=== PATIENT | female | born 1955 | race African-American/Black ===

== ENCOUNTER 2016-08-23 20:53 | Emergency (ER) | payer OTHER ==
[~2016-08-23] VITALS: Ht 165.1 cm; Wt 65.3 kg
--- NOTE | 2016-08-23 20:55 | NUR ---
TO BED 1 BIB PARAMEDICS C/O SUDDEN ONSET LUQ ABDOMINAL PAIN X20 MIN WORKFORCE MANAGEMENT COORDINATOR. PT AAOX4 NO ACUTE DISTRESS NOTED, RESP EVEN AND UNLABORED. PT TOOK FIORICET 1 1/2 TAB WORKFORCE MANAGEMENT COORDINATOR. PLACE PT ON CARDIAC MONITORING, CONTINUOUS POX, O2@2L/NC. PENDING ER MD REYNOSO.
[2016-08-23 21:55] LABS: BASOPHILS % (AUTO) 0.8 % (0.0-2.0); EOSINOPHILS # (AUTO) 0.2 /CMM (0.0-0.7); EOSINOPHILS % (AUTO) 2.6 % (0.0-6.0); HEMATOCRIT 32 % (33-45); HEMOGLOBIN 10.5 g/dL (11.5-14.8); LYMPHOCYTES # (AUTO) 2.6 /CMM (0.8-4.8); LYMPHOCYTES % (AUTO) 45.8 % (20.0-44.0); MEAN CORPUSCULAR HEMOGLOBIN 27 PG (26.0-33.0); MEAN CORPUSCULAR HGB CONC 33 g/dl (31.0-36.0); MEAN CORPUSCULAR VOLUME 83 fL (82-100); MONOCYTES # (AUTO) 0.4 /CMM (0.1-1.30); MONOCYTES % (AUTO) 6.4 % (2.0-12.0); NEUTROPHILS # (AUTO) 2.6 /CMM (1.8-8.9); NEUTROPHILS % (AUTO) 44.4 % (43.0-81.0); PLATELET COUNT (AUTO) 214 /CMM (150-450); RDW COEFFICIENT OF VARIATION 12.4 (11.5-15.0); RED BLOOD CELL COUNT(AUTO) 3.87 MIL/uL (4.0-5.2); WHITE BLOOD COUNT (AUTO) 5.9 K/uL (4.3-11.0)
[2016-08-23 22:15] LABS: CALCIUM, SERUM 8.6 mg/dL (8.5-10.1); CREATININE 0.7 mg/dL (0.6-1.3); POTASSIUM 3.7 mmol/L (3.5-5.1)
[2016-08-23 22:20] LABS: ALBUMIN 3.5 g/dL (3.4-5.0); BILIRUBIN,TOTAL 0.2 mg/dL (0.2-1.0); TOTAL PROTEIN, SERUM 6.5 g/dL (6.4-8.2)
--- NOTE | 2016-08-23 22:33 | NUR ---
PT TRANSPORTED TO RADIOLOGY FOR CT ABD/PELVIS.
[2016-08-23 22:35] LABS: LIPASE 129 U/L (73-393); TROPONIN I < 0.017 ng/mL (0.00-0.056)
--- NOTE | 2016-08-23 22:47 | NUR ---
PT BACK FROM RADIOLOGY. PENDING CT RESULT.
--- NOTE | 2016-08-23 23:55 | NUR ---
URINE SAMPLE COLLECTED AND SENT TO LAB.
[2016-08-24 00:25] LABS: APPEARANCE,URINE CLOUDY (CLEAR); COLOR,URINE YELLOW (YELLOW)
[2016-08-24 00:26] LABS: BILIRUBIN,URINE NEGATIVE (NEGATIVE); BLOOD, URINE NEGATIVE Ery/uL (NEGATIVE); KETONES,URINE NEGATIVE (NEGATIVE); LEUKOCYTE ESTERASE ,URINE 2+ (NEGATIVE); NITRITE, URINE POSITIVE (NEGATIVE); PROTEIN,URINE NEGATIVE (NEGATIVE); UGLUCOSE NEGATIVE (NEGATIVE); UROBILINOGEN,URINE 0.2 EU/dL (0.2)
[2016-08-24 00:28] LABS: RBC,URINE 0-2 /HPF (0-2)
[2016-08-24 00:29] LABS: BACTERIA,URINE 2+ /HPF (None Seen); SQUAMOUS EPITHELIAL CELL,UR Rare /HPF (None Seen); URINE AMORPHOUS URATE Many /HPF (None Seen); WBC,URINE 20-30 /HPF (0-3)
--- NOTE | 2016-08-24 00:49 | NUR ---
IV removed. Catheter intact and site benign. Pressure and 4x4 applied to site. No bleeding noted. Patient discharged to home in stable condition. Written and verbal after care instructions given. Patient verbalizes understanding of instruction. ambulatory with a steady gait noted. pt family members at bedside to take pt home.
[2016-08-24 00:50] VITALS: BP 134/69
== END 2016-08-24 00:51 | disposition home or self-care (01) ==
LOC: ER 20:57
DX: K59.00 Constipation, unspecified (principal); N39.0 Urinary tract infection, site not specified; D64.9 Anemia, unspecified; G35 Multiple sclerosis; Z77.090 Contact with and (suspected) exposure to asbestos
CPT/HCPCS: 36415; 71010; 72128; 74176; 80048; 80076; 81001; 83690; 84484; 85025; 87086; 99285; A4606; Z7610; 81000-TC